=== PATIENT | female | born 1995 | race American Indian/Alaskan Native ===

== ENCOUNTER 2018-06-02 12:47 | Emergency (ER) | payer BC ==
--- NOTE | 2018-06-02 13:11 | EDM.PDOC ---
ED HPI GENERAL MEDICAL PROBLEM - General Chief Complaint: ENT Problem Stated Complaint: JAW PAIN RIGHT SIDE Time Seen by Provider: 06/02/18 12:47 Source of Information: Reports: Patient History Limitations: Reports: No Limitations - History of Present Illness INITIAL COMMENTS - FREE TEXT/NARRATIVE: 23 y.o.f came to the ed due to dental pain. Pt had tooth # 32 pulled in February last year. Pt has the pain now in that area. No bleeding no swelling. Pt has Sensitivity to cold or heat, however. No N/V/D or any other acute medical issues. BP 165/77 RR 18 Pulse ox 98% on RA Temp 36.8 Pulse 55 Onset Date: 06/01/18 Onset Time: 08:00 Duration: Day(s):, Intermittent Location: Reports: Face Quality: Reports: Ache, Dull, Same as Previous Episode Severity: Mild Improves with: Reports: Rest Worsens with: Reports: Movement Context: Reports: Other (poor dentition) Associated Symptoms: Reports: No Other Symptoms - Related Data Allergies Allergy/AdvReac Type Severity Reaction Status Date / Time No Known Allergies Allergy Verified 06/02/18 12:57 Home Meds: Home Meds Sulfamethoxazole/Trimethoprim [Bactrim Ds Tablet] 1 each PO BID #20 tablet 06/02 [Rx] ED ROS ENT - Review of Systems Review Of Systems: See Below Constitutional: Reports: No Symptoms HEENT: Reports: Dental Pain Respiratory: Reports: No Symptoms Cardiovascular: Reports: No Symptoms Endocrine: Reports: No Symptoms GI/Abdominal: Reports: No Symptoms : Reports: No Symptoms Musculoskeletal: Reports: No Symptoms Skin: Reports: No Symptoms Neurological: Reports: No Symptoms Psychiatric: Reports: No Symptoms Hematologic/Lymphatic: Reports: No Symptoms Immunologic: Reports: No Symptoms ED EXAM, ENT - Physical Exam Exam: See Below Exam Limited By: No Limitations General Appearance: Alert, WD/WN, Mild Distress Eye Exam: Bilateral Eye: Normal Inspection Ears: Normal External Exam, Normal Canal, Hearing Grossly Normal Nose: Normal Inspection, Normal Mucousa, No Blood Mouth/Throat: Normal Lips, Dental Pain, Dental Tenderness Head: Atraumatic, Normocephalic Neck: Normal Inspection, Supple, Non-Tender, Full Range of Motion Respiratory/Chest: No Respiratory Distress, Lungs Clear, Normal Breath Sounds, Chest Non-Tender Cardiovascular: Normal Peripheral Pulses, Regular Rate, Rhythm, No Edema, No Gallop, No Murmur GI/Abdominal: Normal Bowel Sounds, Soft, Non-Tender, No Organomegaly, No Abnormal Bruit, No Mass, Pelvis Stable (Female) Exam: Deferred Rectal (Female) Exam: Deferred Back: Normal Inspection, Full Range of Motion Extremities: Normal Inspection, Normal Range of Motion, Non-Tender, No Pedal Edema Neurological: Alert, Oriented, CN II-XII Intact, Normal Cognition, Normal Gait Psychiatric: Normal Affect, Normal Mood Skin: Warm, Dry, Intact, Normal Color, No Rash Lymphatic: No Adenopathy Course - Vital Signs Text/Narrative:: 23 y.o.f came to the ed due to dental pain. Pt had tooth # 32 pulled in February last year. Pt has the pain now in that area. No bleeding no swelling. Pt has Sensitivity to cold or heat, however. No N/V/D or any other acute medical issues. BP 165/77 RR 18 Pulse ox 98% on RA Temp 36.8 Pulse 55 PE: WNWD F with dental discomfort Impression: Poor dentition, Gingivitis Tx: None in te ED Reexam; Pt was doing fine in the ED Plan: D/C with instructions Last Recorded V/S: Last Vital Signs Temp 36.9 C 06/02/18 12:50 Pulse 55 L 06/02/18 12:50 Resp 18 06/02/18 12:50 BP 165/77 H 06/02/18 12:50 Pulse Ox 98 06/02/18 12:50 Departure - Departure Time of Disposition: 13:08 Disposition: Home, Self-Care 01 Condition: Good Clinical Impression: Poor dentition, Gingivitis - Discharge Information Prescriptions: Sulfamethoxazole/Trimethoprim [Bactrim Ds Tablet] 1 each PO BID #20 tablet Referrals: PCP,None [Primary Care Provider] - Forms: ED Department Discharge Additional Instructions: Please f/u with a dentist [facility] Please take the Abx as recommended, Motrin for pain, please come back if your your symptoms get worse acutely
== END 2018-06-02 13:15 | disposition home or self-care (01) ==
LOC: FB.ED 12:47
DX: K05.10 Chronic gingivitis, plaque induced (principal)
CPT/HCPCS: 99283